=== PATIENT | male | born 1970 | race Caucasian/White ===

== ENCOUNTER 2020-09-12 19:12 | Emergency (ER) | payer SELFPAY ==
--- NOTE | 2020-09-12 | XR_ITS ---
EXAMINATION: XR ELBOW, LEFT CLINICAL INFORMATION: Injury. Pain COMPARISON: None TECHNIQUE: AP, lateral, and oblique views of the left elbow. FINDINGS: No significant joint effusion. Bones are normal anatomic alignment with no acute fracture or dislocation seen. XR/XR elbow LT min 3V IMPRESSION: Normal left elbow.
[2020-09-12 19:15] VITALS: BP 142/88; PULSE 109; RESP 18; TEMP 37; O2SAT 97; BMI 32.4
--- NOTE | 2020-09-12 22:23 | ED_ITS ---
HPI - Extremity Problem General Chief complaint: Extremity Injury, Upper Stated complaint: elbow pain Time Seen by Provider: 09/12/20 21:50 Source: patient and horn player Mode of arrival: ambulatory History of Present Illness HPI Narrative: This is a 50-year-old male who presents with 4 weeks of left elbow discomfort with point tenderness at the lateral aspect and discomfort on range of motion but denies any numbness/tingling distal to that area or loss of strength in the left hand. He states that the injury occurred while working at [employer] when a metal cart struck him in the elbow. He denies having gone and reported the accident to Employee Health. Related Data Allergies Allergy/AdvReac Type Severity Reaction Status Date / Time No Known Allergies Allergy Verified 09/12/20 19:14 Review of Systems Review of Systems: Pertinent positives and negatives as stated in HPI 10 point review of systems is otherwise negative. PMFSH Past Medical History Source: nursing notes reviewed Medical History Kidney atrophy Social History Social History Advance Directives: No Advance Directives Information Provided: No Physical Exam Vital Signs: Vital Signs: Last Vital Signs Temp 98.6 F 09/12/20 19:15 Pulse 109 H 09/12/20 19:15 Resp 18 09/12/20 19:15 BP 142/88 H 09/12/20 19:15 Pulse Ox 97 09/12/20 19:15 Body Mass Index 32.4 VITAL SIGNS: Reviewed. GENERAL: Well developed, well nourished, in no acute distress. OROPHARYNX: no oral lesions noted, posterior pharynx clear NECK: Supple, no adenopathy LUNGS: Normal breath sounds. No adventitious sounds or accessory muscle use. SpO2<97> CARDIOVASCULAR: Regular rate and rhythm without noted murmurs, no JVD or lower extremity edema. ABDOMEN: Soft, non-tender, non-distended with bowel sounds. No rigidity. No guarding. No palpable masses or hernias noted LEFT ELBOW: There is no erythema, fluctuance, warmth, edema, and no observed abnormalities when compared to the right. Capillary refill and neurovascular check distal to the left elbow is otherwise intact. NEUROLOGIC: Alert and oriented x 4. Course Course Course Narrative: This is a 50-year-old male with history and clinical presentation consistent with left elbow pain of unclear etiology but suspect possibility of arthritis as there are no radiographic findings consistent with healing fracture or tendon calcinosis. There is no evidence of joint infection or effusion and patient was reassured and instructed to follow-up as an outpatient with Orthopedics for further evaluation. He was given combination analgesics and on re-evaluation has had good resolution of his discomfort. Discharge Plan Discharge Clinical Impression: Elbow pain, left Patient Disposition: Home, Self-Care Instructions: Arthralgia (ED) Additional Instructions: 1. Tylenol 1000 mg, por v?a oral, cada 6 horas seg?n sea necesario para controlar el dolor. 2. Ibuprofeno 400 mg, por v?a oral con leche o alimentos, cada 6 horas seg?n sea necesario para controlar el dolor. 3. No limite el rango de movimiento de mccann codo bertram y adrian un seguimiento con las referencias que se proporcionan a continuaci?n. Referrals: Dane Palomares MD [Physician] - 2 days (Please evaluate left elbow pain, radiographic imaging negative for acute fracture/dislocations/effusion.) Print Language: Prydeinig
[2020-09-12] MEDS: Ketorolac Tromethamine 15 MG/ML VIAL IM (22:39)
[2020-09-12] MEDS: Acetaminophen 325 MG TABLET 975 MG PO (22:39)
== END 2020-09-12 22:45 | disposition home or self-care (01) ==
PROVIDERS: Emergency Provider Student in an Organized Health Care Education/Training Program
DX: Z04.2 Encounter for examination and observation following work accident (principal); M25.522 Pain in left elbow
CPT/HCPCS: 73080; 96372; 99283; 99284; J1885

== ENCOUNTER 2024-02-04 08:25 | Outpatient (AMB) | payer OTHER, SELFPAY ==
--- NOTE | 2024-02-04 08:28 | A.OFFVIS_ITS ---
Vital Signs 02/04/24 08:32 Height 5 ft 6 in Weight 218 lb BMI 35.2 BP 118/82 Blood Pressure Location Rt brachial Position Sitting Pulse 72 Pulse Source Pulse Oximeter Pulse Oximetry (%) 92 Oxygen Delivery Method Room Air Intake Visit Reasons: ENP-Peripheral Neuropathy-CONF Intake Note: Patient presents for peripheral neuropathy. Patient has neuropathy symptoms on hands,feet and knees. Allergies No Known Allergies Allergy (Verified 02/04/24 08:39) Medication List - Last Reconciled 02/04/24 by CRYSTAL Lebron apixaban (Eliquis) 5 mg PO BID levothyroxine 112 mcg PO DAILY lorazepam 1 mg PO DAILY PRN mirtazapine 15 mg PO BEDTIME osimertinib (Tagrisso) 80 mg PO DAILY zolpidem 5 mg PO BEDTIME PRN HPI Comments Details: Left-handed 53-yr-old male presents for neurological evaluation of: numbness and tingling. Pt is accompanied by his , Mi. PMH significant for : lung cancer, hypothyroidism, DVT, anxiety/depression, thrombosis of internal jugular vein, right, chronic thrombosis of left basilic vein, chronic anticoagulation- on Eliquis, sleep difficulties. He is f/b [facility] for tx of lung cancer: Metastatic adenocarcinoma of pulmonary origin (T10 lytic lesion), 09/17/22 Lung cancer, MAX; stage IIIc (cT4 pN3 cM0), Adenocarcinoma of pulmonary origin with PD-L1 15%??EGFR [id number] ?exon 19 mutation (left paramediastinal mass), 11/21/21 Pt's current tx: Osimertinib 80 mg daily. ?Started?10/23/2023. Past tx's: Chemo/RT (carbo/Taxol) 01/14/2022 to 02/18/2022 Durvalumab 03/27/2022 to 09/20/2022 Carbo/pemetrexed/bevacizumab 10/11/2022 to 12/26/2022 (4 cycles) Bevacizumab single agent continued RT to T10 region 06/2023 Carbo/Pemetrexed/bevacizumab, resumed 07/17/2023 x1 dose, d/c?d after drug reaction Docetaxel, [id number]/8/23.??Poor?tolerance and disease progression. Pt started having altered sensations in his BUE L > R hands, L > R knees, and L > R heels. This started after he started chemotherapy started in 2021. In the hands, it feels like something is crawling on them, shocking pain. Squeezing his fist causes pain in his distal forearm. He is prone to dropping things. Touching metal feels weird. His hands also feel cold. Hands cramps w/wo action In the knees, he feels stabbing pain, more so when up and moving. In the heels, he feels a pressure, pins/needles pain. He has ankle and heel swelling. Also has the sensation that something is crawling on his skin. Has frequent cramps. He feels hypersensitivity to touch- many shoes are uncomfortable. Can feel the ground when walking. Denies weakness in the legs or gait changes. Denies usual neck or back pain. Pt does endorse snoring, fatigue, daytime sleepiness, and sleep difficulties- especially difficulty maintaining sleep. Previously tried Gabapentin 300mg bid w/o effect or intolerance. Had right hand/wrist accident as a child. 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 He used to work for [employer] or in other physically active jobs. [facility] Medical History (Updated 02/04/24 @ 17:57 by CRYSTAL Lebron) Kidney atrophy Surgical History (Updated 02/04/24 @ 08:49 by JOSE MIGUEL Lenz) History of removal of Port-a-Cath Family History (Updated 02/04/24 @ 08:43 by JOSE MIGUEL Lenz) Mother HTN (hypertension) Social History (Updated 02/04/24 @ 08:43 by JOSE MIGUEL Lenz) Alcohol intake: never Patient Tobacco Use Status: Never used Tobacco Physical Exam Vital Signs: Last Vital Signs Pulse 72 02/04/24 08:32 BP 118/82 02/04/24 08:32 Pulse Ox 92 02/04/24 08:32 Oxygen Delivery Method Room Air 02/04/24 08:32 BMI result Body Mass Index 35.2 Const General: cooperative and no acute distress Orientation/consciousness: patient oriented x3 HEENT Head: Yes normocephalic Resp Effort & Inspection: normal respiratory effort and able to speak in complete sentences Neuro Other: Right radial nerve compression- elicits tinglining inti 2nd-4th fingers Phalen- LUE- elicits tingling into posterior left forearm Left 2nd-4th fingertips more sensitive to sharp touch than right Bilateral heel- decreased sharp sensation. Left hand grasp slightly weaker than right, otherwise MS 5/5 throughout. General: patient oriented x3, CN's II-XI intact bilaterally and deep tendon reflexes 2+ bilaterally Gait exam (Neuro): Normal gait present Motor exam (neuro): 5/5 motor strength present throughout Psych Appearance: grossly normal Mental Status: mental status grossly normal Speech and movement: Normal speech and movement present Affect: normal affect Attitude: cooperative Thought process: Normal thought process present Thought content: Normal thought content present Insight: Good insight present (Psych) Assessment & Plan Assessment & Plan (1) Paresthesias: Comment: L > R BUE and BLE pins and needles, pain, altered sensation. DDx chemotherapy induced neuropathy, focal carpal or tarsal tunnel neuropathy. Code(s): R20.2 - Paresthesia of skin Category: Medical (2) Muscle cramps: Code(s): R25.2 - Cramp and spasm Category: Medical (3) Fatigue: Code(s): R53.83 - Other fatigue Category: Medical (4) Snoring: Code(s): R06.83 - Snoring Category: Medical (5) Sleep difficulties: Code(s): G47.9 - Sleep disorder, unspecified Category: Medical Plan Pt advised to undergo: Labs to assess for underlying etiologies of paresthesias, cramps, pain. BUE and BLE EMG/NCS- to assess for focal vs diffuse neuropathic process. HST to assess for sleep apnea. For knee pain- suspect this may be more musculoskeletal- consider knee x-ray upon review of above. Retry Gabapentin- starting at 300mg qhs, and may increase to 300mg TID (or [id number] qam and 600mg qhs) Trial alpha-lipoic acid 600mg qd. Patient seen in collaboration with Dr. Dong. f/u upon review of above and in-clinic in 6 months or sooner. Orders: Orders Comprehensive Met. Panel Today C34.90 - Malignant neoplasm of unspecified part of unspecified bronchus or lung, E03.9 - Hypothyroidism, unspecified, R20.2 - Paresthesia of skin, R25.2 - Cramp and spasm, R53.83 - Other fatigue Ferritin Today C34.90 - Malignant neoplasm of unspecified part of unspecified bronchus or lung, E03.9 - Hypothyroidism, unspecified, R20.2 - Paresthesia of skin, R25.2 - Cramp and spasm, R53.83 - Other fatigue Homocysteine Today C34.90 - Malignant neoplasm of unspecified part of unspecified bronchus or lung, E03.9 - Hypothyroidism, unspecified, R20.2 - Paresthesia of skin, R25.2 - Cramp and spasm, R53.83 - Other fatigue IRON PROFILE Today C34.90 - Malignant neoplasm of unspecified part of unspecified bronchus or lung, E03.9 - Hypothyroidism, unspecified, R20.2 - Paresthesia of skin, R25.2 - Cramp and spasm, R53.83 - Other fatigue Methylmalonic Acid Today C34.90 - Malignant neoplasm of unspecified part of unspecified bronchus or lung, E03.9 - Hypothyroidism, unspecified, R20.2 - Paresthesia of skin, R25.2 - Cramp and spasm, R53.83 - Other fatigue Vitamin D 25-OH (D2 and D3) Today C34.90 - Malignant neoplasm of unspecified part of unspecified bronchus or lung, E03.9 - Hypothyroidism, unspecified, R20.2 - Paresthesia of skin, R25.2 - Cramp and spasm, R53.83 - Other fatigue Magnesium Today C34.90 - Malignant neoplasm of unspecified part of unspecified bronchus or lung, E03.9 - Hypothyroidism, unspecified, R20.2 - Paresthesia of skin, R25.2 - Cramp and spasm, R53.83 - Other fatigue NE electromyogram (EMG) Today E03.9 - Hypothyroidism, unspecified, R20.2 - Paresthesia of skin, R25.2 - Cramp and spasm NE nerve conduction velocity Today R20.2 - Paresthesia of skin, R25.2 - Cramp and spasm Complete Blood Count Auto Diff Today C34.90 - Malignant neoplasm of unspecified part of unspecified bronchus or lung, E03.9 - Hypothyroidism, unspecified, R20.2 - Paresthesia of skin, R25.2 - Cramp and spasm, R53.83 - Other fatigue Creatine Kinase Total Today C34.90 - Malignant neoplasm of unspecified part of unspecified bronchus or lung, E03.9 - Hypothyroidism, unspecified, R20.2 - Paresthesia of skin, R25.2 - Cramp and spasm, R53.83 - Other fatigue Vitamin B12 and Folate Today C34.90 - Malignant neoplasm of unspecified part of unspecified bronchus or lung, E03.9 - Hypothyroidism, unspecified, R20.2 - Paresthesia of skin, R25.2 - Cramp and spasm, R53.83 - Other fatigue TSH reflex Free T4 Today C34.90 - Malignant neoplasm of unspecified part of unspecified bronchus or lung, E03.9 - Hypothyroidism, unspecified, R20.2 - Paresthesia of skin, R25.2 - Cramp and spasm, R53.83 - Other fatigue RT home sleep study Today G47.9 - Sleep disorder, unspecified, R06.83 - Snoring, R53.83 - Other fatigue Medications: New gabapentin 300 mg PO TID 30 days 90 caps 3RF alpha lipoic acid 600 mg PO DAILY 30 days 30 caps 6RF gabapentin 300 mg PO TID 90 caps 3RF 30 days alpha lipoic acid 600 mg PO DAILY 30 caps 6RF 30 days Coding Level of Care Code New Pt Level 4 (00770) Diagnoses Paresthesias R20.2 Muscle cramps R25.2 Fatigue R53.83 Snoring R06.83 Sleep difficulties G47.9
[2024-02-04 08:32] VITALS: BP 118/82; PULSE 72; O2SAT 92; BMI 35.2
== END 2024-02-04 09:47 | disposition home or self-care (01) ==
PROVIDERS: PCP Internal Medicine; Visit Provider Nurse Practitioner Family
DX: R20.2 Paresthesia of skin (principal); R25.2 Cramp and spasm; R53.83 Other fatigue; R06.83 Snoring; G47.9 Sleep disorder, unspecified
CPT/HCPCS: 99204

== ENCOUNTER → 2024-02-04 08:25 | Outpatient (BNVA) | payer OTHER, SELFPAY | PROVIDERS: PCP Internal Medicine; Visit Provider Nurse Practitioner Family | DX: R20.2 Paresthesia of skin (principal); R25.2 Cramp and spasm; R53.83 Other fatigue; R06.83 Snoring; G47.9 Sleep disorder, unspecified | CPT/HCPCS: 99202 ==

== ENCOUNTER 2024-03-10 15:16 | Outpatient (REF) | payer MEDICARE, MEDICAID, SELFPAY ==
--- NOTE | 2024-03-10 15:19 | EMG_ITS ---
Chief complaint: History of lung cancer, ongoing chemotherapy, history of radiation. Numbness of hands and feet started during chemotherapy. Denies neck and back pain. Reason for referral: Evaluate for focal versus diffuse neuropathy Referred by: Elena Arevalo NP Procedure done: Bilateral upper and lower extremities NCS/EMG Precautions and/or limitations: Patient on Eliquis Hypersensitivity, especially with needle. The limb temperature was monitored continuously and remained between 32-36 degrees C during the performance of the NCS. Nerve Conduction Studies Anti Sensory Summary Table ?Stim Site NR Onset (ms) Norm Onset (ms) Peak (ms) Norm Peak (ms) O-P Amp (?V) Norm O-P Amp Site1 Site2 Delta-0 (ms) Dist (cm) Richar (m/s) Norm Richar (m/s) Left Median Anti Sensory (2nd Digit) Wrist NR <3.6 >10 Wrist 2nd Digit 14.0 Right Median Anti Sensory (2nd Digit) Wrist NR <3.6 >10 Wrist 2nd Digit 14.0 Right Radial Anti Sensory (Thumb) Forearm ? 1.6 2.1 <3.1 20.6 Forearm Thumb 1.6 0.0 Left Sural Anti Sensory (Lat Mall) Calf NR <4.0 >5.0 Calf Lat Mall 14.0 Right Sural Anti Sensory (Lat Mall) Calf NR <4.0 >5.0 Calf Lat Mall 14.0 Left Ulnar Anti Sensory (5th Digit) Wrist ? 2.3 3.3 <3.7 8.1 >15.0 Wrist 5th Digit 2.3 14.0 61 Right Ulnar Anti Sensory (5th Digit) Wrist ? 2.3 3.1 <3.7 8.8 >15.0 Wrist 5th Digit 2.3 14.0 61 Motor Summary Table ?Stim Site NR Onset (ms) Norm Onset (ms) O-P Amp (mV) Norm O-P Amp iAmp (mV) Amp (1st) (%) Site1 Site2 Delta-0 (ms) Dist (cm) Richar (m/s) Norm Richar (m/s) Left Median Motor (Abd Poll Brev) Wrist ? 7.0 <3.9 7.8 >4.5 9.3 100.0 Elbow Wrist 4.7 23.5 50 >45 Elbow ? 11.7 7.9 9.5 101.3 Right Median Motor (Abd Poll Brev) Wrist ? 6.4 <3.9 12.3 >4.5 15.7 100.0 Elbow Wrist 4.5 22.0 49 >45 Elbow ? 10.9 11.6 14.8 94.3 Right Peroneal Motor (Ext Dig Brev) Ankle ? 4.4 <4.0 5.3 >2.5 6.7 100.0 Ankle Ext Dig Brev 4.4 0.0 B Fib ? 10.7 4.6 5.6 86.8 B Fib Ankle 6.3 33.0 52 >40 Poplt ? 11.8 4.3 5.3 81.1 Poplt B Fib 1.1 6.0 55 >40 Left Tibial Motor (Abd Sylvester Brev) Ankle ? 4.0 <5 4.4 >2.5 5.7 100.0 Ankle Abd Sylvester Brev 4.0 0.0 Knee ? 11.6 4.1 5.1 93.2 Knee Ankle 7.6 39.5 52 >40 Right Tibial Motor (Abd Sylvester Brev) Ankle ? 3.5 <5 6.5 >2.5 8.7 100.0 Ankle Abd Sylvester Brev 3.5 0.0 Knee ? 11.9 3.6 4.7 55.4 Knee Ankle 8.4 42.0 50 >40 Left Ulnar Motor (Abd Dig Minimi) Wrist ? 2.6 <3.0 7.7 >5 9.1 100.0 B Elbow Wrist 4.0 21.0 53 >45 B Elbow ? 6.6 6.5 7.8 84.4 A Elbow B Elbow 2.2 10.0 45 >45 A Elbow ? 8.8 7.1 8.3 92.2 Right Ulnar Motor (Abd Dig Minimi) Wrist ? 2.8 <3.0 5.2 >5 6.4 100.0 B Elbow Wrist 3.8 22.0 58 >45 B Elbow ? 6.6 4.0 4.9 76.9 A Elbow B Elbow 1.8 10.0 56 >45 A Elbow ? 8.4 5.0 6.3 96.2 EMG ?Side Muscle Nerve Root Ins Act Fibs Psw Amp Dur Poly Recrt Int Pat Comment Right 1stDorInt Ulnar C8-T1 Incr 1+ 1+ Nml Nml 0 Nml Complete Right FlexCarRad Median C6-7 Nml Nml Nml Nml Nml 0 Nml Complete Right Biceps Musculocut C5-6 Nml Nml Nml Nml Nml 0 Nml Complete Right Triceps Radial C6-7-8 Incr 1+ 1+ Nml Nml 0 Nml Complete Right Deltoid Axillary C5-6 Nml Nml Nml Nml Nml 0 Nml Complete Right AbdHallucis MedPlantar S1-2 Incr 1+ 1+ Nml Nml 0 Nml Complete Right AntTibialis Dp Br Peron L4-5 Incr 1+ 1+ Nml Nml 0 Nml Complete Right PostTibialis Tibial L5, S1 Nml Nml Nml Nml Nml 0 Nml Complete Right MedGastroc Tibial S1-2 Incr 1+ 1+ Nml Nml 0 Nml Complete Right VastusMed Femoral L2-4 Nml Nml Nml Nml Nml 0 Nml Complete Left AbdHallucis MedPlantar S1-2 Incr 1+ 1+ Nml Nml 0 Nml Complete Left AntTibialis Dp Br Peron L4-5 Incr 1+ 1+ Nml Nml 0 Nml Complete Left PostTibialis Tibial L5, S1 Nml Nml Nml Nml Nml 0 Nml Complete Left MedGastroc Tibial S1-2 Incr 1+ 1+ Nml Nml 0 Nml Complete Left VastusMed Femoral L2-4 Nml Nml Nml Nml Nml 0 Nml Complete FINDINGS: Bilateral median motor nerves showed prolonged distal latency, normal amplitude and normal conduction velocity. Right peroneal nerve showed prolonged distal latency, normal amplitude and normal conduction velocity. Bilateral median sensory nerves absent response. Bilateral ulnar sensory nerves showed small amplitudes. Bilateral sural nerves showed absent response. All other nerves tested were within normal. Concentric needle EMG was performed in selected muscles of the right upper and bilateral lower extremities. Study revealed signs of electric abnormalities as shown in the table above. Right FDI and triceps showed increased insertional activity, PSWs and fibrillations. Bilateral AH, medial gastrocnemius and tibialis anterior showed increased insertional activity, PSWs and fibrillations. It was difficult for patient to tolerate needle EMG, deferred left upper extremity. IMPRESSION: 1. This is an abnormal study. 2. There is electrodiagnostic evidence for diffuse symmetric sensorimotor polyneuropathy, axonal features. 3. Concomitant bilateral median neuropathy at the wrists, consistent with Carpal Tunnel Syndrome. Thank you for your kind referral. Shiela Brice MD, GAVINO Board Certified, [place] [employer] and Rehabilitation (ABPMR) Board Certified, [place] Board [employer] Electrodiagnostic [employer] (ABEM) CODIN [id number] x 3 MTDD
== END 2024-03-10 15:17 | disposition home or self-care (01) ==
LOC: HO.NEURO 15:16
PROVIDERS: Visit Provider Nurse Practitioner Family
DX: R20.2 Paresthesia of skin (principal); R25.2 Cramp and spasm; E03.9 Hypothyroidism, unspecified
CPT/HCPCS: 95886; 95913

== ENCOUNTER → 2024-03-10 15:19 | Outpatient (BNV) | payer MEDICARE, MEDICAID, SELFPAY | PROVIDERS: Visit Provider Physical Medicine & Rehabilitation | DX: G62.9 Polyneuropathy, unspecified (principal); G56.03 Carpal tunnel syndrome, bilateral upper limbs | CPT/HCPCS: 95886; 95913 ==

== ENCOUNTER → 2024-04-12 13:45 | Outpatient (REF) | payer MEDICARE, MEDICAID, SELFPAY | LOC: HO.SL 13:45 | PROVIDERS: PCP Internal Medicine; Visit Provider Nurse Practitioner Family | DX: G47.33 Obstructive sleep apnea (adult) (pediatric) (principal); R53.83 Other fatigue; R06.83 Snoring | CPT/HCPCS: 95806 ==

== ENCOUNTER → 2024-04-12 14:02 | Outpatient (BNV) | payer MEDICARE, MEDICAID, SELFPAY | PROVIDERS: PCP Internal Medicine; Visit Provider Psychiatry & Neurology Neurology | DX: G47.33 Obstructive sleep apnea (adult) (pediatric) (principal) | CPT/HCPCS: 95806 ==